=== PATIENT | male | born 1950 | race Caucasian/White ===

== ENCOUNTER 2016-09-12 00:30 | Day surgery (SDC) | payer OTHER ==
[2016-09-12] VITALS (11 sets, daily range): BP systolic 100–123; BP diastolic 59–79; PULSE 54–64; RESP 13–18; O2SAT 92–100
[~2016-09-12] VITALS: Ht 185.4 cm; Wt 77.6 kg
[~2016-09-12 00:30] MED LIST: ALPR0.5T PO; ASPI-973 PO; CARV25TA2 PO; CLOP75TA28 PO; LEVO175T5 PO; LISI-571 PO; SIMV40TA5 PO; SPIR25TA3 PO
[2016-09-12] MEDS ORDERED: 0.9% Sodium Chloride 1,000 ML IV PRN (07:39)
[2016-09-12] MEDS ORDERED: Vancomycin Inj 1,000 MG in IV Premix 1 EACH IV ONE (07:40)
[2016-09-12] MEDS ORDERED: ASPI325T32 PO (11:33)
[2016-09-12] MEDS ORDERED: AMIO400T4 PO (11:33)
[2016-09-12 11:47] LABS: BASOPHILS % (AUTO) 0.3 % (0-3); EOSINOPHILS % (AUTO) 2.5 % (0-5); MONOCYTES % (AUTO) 9.6 % (4-12); Mean Corpuscular Hemoglobin 29.4 pg (27.0-35.0); Mean Corpuscular Volume 88.3 fL (81-100); NEUTROPHILS % (AUTO) 72.5 % (40-74); Platelet Count 240 bil/L (150-400)
[2016-09-12] MEDS ORDERED: Heparin 1,000 Unit/mL 10 mL Inj ONE ×2 (13:58→14:01)
[2016-09-12] MEDS ORDERED: 0.9% Sodium Chloride 1,000 ML ONE (13:58)
[2016-09-12] MEDS ORDERED: Bupivacaine-MPF 0.5% 30 mL Inj ONE (13:58)
[2016-09-12] MEDS ORDERED: 0.9% Sodium Chloride 250 ML ONE ×2 (13:59→14:01)
[2016-09-12] MEDS ORDERED: fentaNYL-PF 50 mCg/mL 2 mL Inj ONE ×2 (14:25→14:47)
[2016-09-12] MEDS ORDERED: Vancomycin 1,000 mg Inj ONE (14:26)
[2016-09-12] MEDS: 0.9% Sodium Chloride 1,000 ML IV SCH ×2 (16:03→22:02)
[2016-09-12] MEDS ORDERED: Ondansetron 2 mg/mL 2 mL Inj IVPUSH PRN (16:05)
[2016-09-12] MEDS ORDERED: HYDROcodone-APAP 5-325 mg Tablet PO PRN (16:05)
--- NOTE | 2016-09-12 16:59 | DRSVH ---
PROCEDURE: X-RAY CHEST ONE VIEW, PORTABLE ([id number]) INDICATIONS: For new leads placed TECHNIQUE: One view of the chest was acquired. COMPARISON: [facility], CR, XR CHEST 2VW, 08/29/2016, 14:05. [facility], CR , XR CHEST 2VW, 04/25/2016, 6:40. FINDINGS: Surgical changes and devices: Pacemaking device and leads appear normal. Lungs and pleura: No pleural effusions or pneumothorax. Lungs are clear. Mediastinum: Mediastinal contours appear normal. Heart size is normal. Bones and chest wall: No suspicious bony lesions. Overlying soft tissues appear unremarkable. IMPRESSION: Normal positioning of leads, no pneumothorax after the procedure. Dictated by: Tima Langston M.D. on 09/12/2016 at 16:57 Approved by: Tima Langston M.D. on 09/12/2016 at 16:57
--- NOTE | 2016-09-12 18:54 | NUR ---
[facility]AS[facility] to [facility] transfer Pt. post pacemaker upgrade by Dr. Bolivar. He was without pain on L. chest pacemaker/ICD site. Island dressing CDI. Tele showed SB, no pacer spikes noted. Pt. was transferred to [facility] at 1830 in stable condition. Report called to [facility] nurse, Carlos Rodriguez RN.
[2016-09-12] MEDS ORDERED: ALPRAZolam 0.5 mg Tablet PO PRN (21:40)
[2016-09-13 00:41] VITALS: BP 101/64; PULSE 65; RESP 18; O2SAT 97
[2016-09-13] MEDS ORDERED: Vancomycin Inj 1,000 MG in IV Premix 1 EACH IV ONE (04:05)
--- NOTE | 2016-09-13 05:31 | NUR ---
Pain/Anxiety: Pt c/o mild pain at surgical site, refused medication. Denied SOB. Requested anxiety medication; effective. L arm in sling all night. Pt slept most of the night, pleasant and cooperative with care.
[2016-09-13 05:42] VITALS: BP 109/70; PULSE 72; RESP 18; O2SAT 97
--- NOTE | 2016-09-13 09:09 | DRSVH ---
PROCEDURE: X-RAY CHEST, TWO VIEWS ([id number]) INDICATIONS: For new lead placement TECHNIQUE: 2 views of the chest were acquired. COMPARISON: [facility], CR, XR CHEST 1VW (PORTABLE), 09/12/2016, 16:18. [facility], CR, XR CHEST 2VW, 08/29/2016, 14:05. FINDINGS: Surgical changes and devices: Stable positioning of left chest AICD Lungs and pleura: Small effusions and no pneumothorax pneumothorax. Lungs are clear. Mediastinum: Mediastinal contours are normal. Heart size is normal. Bones and chest wall: No suspicious bony abnormalities. Soft tissues appear unremarkable. IMPRESSION: Stable chest post pacer placement and probable trace bilateral posterior pleural effusion s. Dictated by: Yuval Faith RRA Interpreted: Kenneth Ocampo MD on 09/13/2016 at 9:07 Transcribed by: KUMAR on 09/13/2016 at 9:09 Approved by: Kenneth Ocampo M.D. on 09/13/2016 at 13:44
[2016-09-13 09:12] VITALS: BP 99/63; PULSE 78; RESP 16; O2SAT 96
--- NOTE | 2016-09-13 09:33 | PCM.DIMED ---
Discharge Instructions Date of Service Sep 13, 2016 Dates of Hospitalization Discharge Diagnosis Discharge Diagnosis Nonischemic Cardiomyopathy Ventricular Tachycardia ICD Diet Heart Healthy Activity Other (Keep incision dry one day. Do not extend left elbow high above shoulder for one month. Do not lift, push or pull more than 10 lbs with the left arm for one month.) Call your provider Fever or Chills, Bleeding, Excessive diarrhea Patient Instructions Follow-up in: 1 week Mid-level Provider (F9): Mihir Owens PA-C Follow-up with Mid-level in: 6 weeks Mihir Owens PA-C Sep 13, 2016 09:33
[2016-09-13] MEDS ORDERED: DOXY100C2 PO (09:50)
--- NOTE | 2016-09-13 10:42 | OP ---
[address] [address] OPERATIVE REPORT PATIENT: ROBERT FULTON : 1950 MR#: [id number] ADMIT: 09/12/2016 JOB ID: [id number] DATE OF SURGERY: 09/12/2016 PREOPERATIVE DIAGNOSIS(ES): 1. Severe dilated cardiomyopathy. 2. Single-chamber implantable cardioverter-defibrillator in place. 3. Recurrent implantable cardioverter-defibrillator discharges. POSTOPERATIVE DIAGNOSIS(ES): 1. Severe dilated cardiomyopathy. 2. Single-chamber implantable cardioverter-defibrillator in place. 3. Recurrent implantable cardioverter-defibrillator discharges. PROCEDURES PERFORMED: 1. Upgrade to a dual-chamber implantable cardioverter-defibrillator system with placement of a right atrial pacing lead and new dual-chamber implantable cardioverter-defibrillator generator. 2. Left upper extremity venogram. 3. Fluoroscopy. SURGEON: Parker Bolivar MD. [employer] PROGRAMMER: Jose Ennis. IMPLANTED DEVICES: 1. [employer] pulse generator, model CD 2411-36, serial #[id number]. 2. Right atrial lead [employer] 208 CC 52 cm, serial #[id number]. 3. Explanted device [employer] pulse generator, model CT2902-17m, serial #[id number]. 4. Chronic device RV ICD lead, single coil DF4, [employer] 7122q, 65 cm, serial #[id number]. ANESTHESIA: Bolus dosing of Versed and fentanyl were administered for an appropriate level of sedation. INDICATION: The patient is a pleasant 66-year-old man with severe dilated cardiomyopathy, single-chamber ICD who had multiple ICD discharges with difficult to discern etiology. After discussion of the risks and benefits of upgrading to a dual-chamber ICD system for better discrimination of SVT versus VT, he opted to proceed. PROCEDURAL DESCRIPTION: Following informed signed consent, the patient was taken to the EP laboratory in a fasting, nonsedated state, where he was prepped and draped in usual sterile fashion. The left infraclavicular surgical scar was infiltrated with 30 cc of a 50/50 mixture of bupivacaine and lidocaine. Once adequate anesthesia had been achieved, a 3 cm incision was performed overlying previous surgical scar. Dissection was carried to the capsule and the lead and generator were freed loose of adhesions. The lead was disconnected from the generator. Under venographic and fluoroscopic guidance, the left subclavian vein was accessed with a micropuncture needle to deploy a 0.035, 3 mm J guidewire. Over this, a 6-Belgian tear-away sheath was advanced. Once the guidewire was removed an active fixation lead was advanced to the right atrial appendage. Mapping was undertaken for adequate sensing and threshold. Ultimately, a position of adequate sensing and threshold was found low in the right atrium. The lead was affixed in position using associated active fixation screw and was connected to the external analyzer and demonstrated appropriately sensed P waves, impedance, and capture threshold was checked to 10 V and there was no evidence of diaphragmatic stimulation. Once the position and redundancy of the leads had been confirmed in multiple fluoroscopic views, the lead was anchored to the prepectoralis fascia using associated anchoring sleeve with 0 Ethibond sutures and the pocket was copiously irrigated out with bacitracin solution. The new lead and chronic lead were connected to a new pulse generator which was then inserted into the pocket. The generator was secured to the floor of the capsule using 1-0 Ti-Cron suture. The incision was then closed with running layers of absorbable suture. The wound was dressed with skin adhesive and a small dressing at the end of procedure. The sponge, needle and instrument counts were all correct. COMPLICATIONS: None. BLOOD LOSS: Negligible. DEVICE MEASURED DATA: 1. Right atrial lead 2.3 mV, 510 ohms, 1 V at 0.5 msec. 2. RV lead 9 mV, 510 ohms, 0.75 V at 0.5 msec. FINAL PROGRAM PARAMETERS: DDD 50-130 beats per minute. Tachytherapy zones are left identical to previous. IMPRESSION: Successful upgrade to a dual-chamber implantable cardioverter-defibrillator system. PLAN: 1. Stat portable chest x-ray. 2. PA and lateral chest x-ray in the morning. 3. Device interrogation. 4. IV vancomycin through tomorrow. 5. Doxycycline 100 mg p.o. daily x7 days. 6. Wound check in one week. ATTENDING STATEMENT: Parker Bolivar MD, electrophysiology attending, supervised/performed all aspects of this procedure.
[2016-09-13 11:05] VITALS: PULSE 73
--- NOTE | 2016-09-13 14:29 | DIS ---
[address] [address] DISCHARGE SUMMARY PATIENT: ROBERT FULTON : 1950 MR#: [id number] ADMIT: 09/12/2016 JOB ID: [id number] DIS: 09/13/2016 REASON FOR ADMISSION: Upgrade of single-lead defibrillator to a dual-chamber defibrillator. CHIEF COMPLAINT: Recurrent ICD shocks. HISTORY OF PRESENT ILLNESS: The patient is a pleasant 66-year-old man with a severe dilated nonischemic cardiomyopathy and an LV ejection fraction of 10%-15%. He received a single-chamber ICD in March 2016 and subsequently had several episodes of VT that were responsive to pacing therapy. The ventricular tachycardia was quite rapid and it was recommended to him that he start on amiodarone, but he declined over concern of the potential toxicities. While on a business trip a number weeks ago he received ICD shocks while in his hotel room, and later while flying home he was shocked by the device during flight. He was taken to the [facility] in [facility] and an EP study did not show inducibility of ventricular arrhythmia and there was concern that he might have had supraventricular tachycardia, specifically atrial flutter. He apparently had an ablation procedure for flutter and also some VT ablation. He was started on amiodarone IV as an inpatient and then when seen by Dr. Cottrell here he was begun on oral loading dose of amiodarone and is currently taking 200 mg b.i.d. His single lead ventricular defibrillator does not record or demonstrate any data from the atrium, so he was admitted now for upgrade of the device to a dual-chamber device so that discrimination of supraventricular versus ventricular tachycardias is possible. COURSE IN THE HOSPITAL: The patient was admitted to the [facility] and taken to the labeling specialist, where he received a dual-chamber ICD without incident. He was taken back to the [facility] for recovery from sedation and then transferred up to the [facility] for overnight observation and telemetry monitoring. He remained stable overnight and had no ventricular arrhythmias. The device site is closed and dry and there is no hematoma. Device evaluation shows excellent capture and sensing thresholds for both leads and he receives pacing less than 1% of the time. Chest x-ray showed good lead positions and no pneumothorax. He felt well for discharge home and was ambulatory without difficulty. He was not having much pain at the ICD site and denied chest pain, lightheadedness, or dyspnea. DISPOSITION: The patient was discharged home in good condition with a followup appointment at the [facility] Cardiology office in one week. He was asked not to extend his left elbow above his left shoulder for one month and not to lift, push, or pull more than 10 pounds with the left arm for one month. He will take medications as prescribed and follow his heart-healthy and heart-failure diet. MEDICATIONS: 1. Doxycycline 100 mg daily for one week. 2. Alprazolam 0.5 mg t.i.d. p.r.n. anxiety. 3. Amiodarone 400 mg daily. 4. Aspirin 325 mg daily. 5. Carvedilol 25 mg b.i.d. 6. Clopidogrel 75 mg daily. 7. Levothyroxine 175 mcg daily. 8. Lisinopril 5 mg daily. 9. Simvastatin 20 mg q.h.s. 10. Spironolactone 12.5 mg daily. FINAL DIAGNOSES: Severe nonischemic dilated cardiomyopathy and also ventricular tachycardia and recurrent ICD shocks.
== END 2016-09-13 11:29 | disposition home or self-care (01) ==
LOC: SOUO 00:30 → MPC 18:31 → SOUO 09-13 11:29
PROVIDERS: ATTEND Internal Medicine Cardiovascular Disease
DX: I42.0 Dilated cardiomyopathy (principal); Z00.6 Encounter for examination for normal comparison and control in clinical research program; T82.191A Other mechanical complication of cardiac pulse generator (battery), initial encounter; Z79.899 Other long term (current) drug therapy; I47.2 Ventricular tachycardia; Z79.82 Long term (current) use of aspirin; E78.5 Hyperlipidemia, unspecified; E03.9 Hypothyroidism, unspecified
CPT/HCPCS: 33241; 33249; 36415; 71010; 71020; 80048; 85025; 85610; 93005; 99152; 99153; C1721; C1769; C1892; C1898; J1200; J1644; J2250; J3010; J3370; J7030; J7050

== ENCOUNTER 2016-11-14 12:10 | Day surgery (SDC) | payer OTHER ==
[~2016-11-14] VITALS: Ht 185.4 cm; Wt 81.7 kg
[~2016-11-14 12:10] MED LIST changes: +AMIO400T4 PO; -ASPI-973 PO; +ASPI325T32 PO; +DOXY100C2 PO; +Lactated Ringer's 1,000 ML IV ONE
[2016-11-14] MEDS ORDERED: Ketamine 10 mg/mL 20 mL Inj ONE (12:11)
[2016-11-14] MEDS ORDERED: Glycopyrrolate 0.2 MG/ML 1mL Inj ONE (12:11)
[2016-11-14] MEDS ORDERED: Propofol 10,000 mCg/mL 20 mL Inj ONE (12:11)
[2016-11-14 12:53] VITALS: BP 128/78; PULSE 69; RESP 12; O2SAT 98
--- NOTE | 2016-11-14 13:18 | PCM.HPANE ---
Patient Data Date of Service: November 14, 2016 Surgeon Admitting Provider: Attending Provider:Carols Kent MD Primary Care Physician:Yunior Dietz MD Other Provider:Lisa Shankar Anesthesia Reason for Visit Pos Fit Test Ht/WT & BMI Height (Feet): 6 Height (Inches): 1 Weight (Kilograms): 81.65 Body Mass Index 23.00 Allergies Coded Allergies: No Known Drug Allergies (Verified Allergy, Unknown, 11/13/16) Past Anesthesia History Anesthesia History: Denies:: Abnormal Airway, Anesthesia Reactions, Difficult Intubation, Fam Anesthesia Reaction, Fam Malignant Hypertherm, Malignant Hyperthermia Diabetes History Hx Diabetes?: No MRSA MRSA: No Medications Blood Thinner: Aspirin, Plavix Last Dose Blood Thinner: November 07, 2016 Home Meds Incl Beta Olga: Yes Date Beta Olga Taken: November 13, 2016 Time Beta Olga Taken: 0630 Reported Medications Amiodarone 400 Mg Vclpid470 Mg PO DAILY 09/12/16 Aspirin 325 Mg [id number] Mg PO DAILY 09/12/16 Alprazolam (Xanax)0.5 Mg Tablet0.5 Mg PO TID PRN For Anxiety 09/11/16 Levothyroxine 175 Mcg Oetglz777 Mcg PO DAILY 04/25/16 Simvastatin 40 Mg Luziyr71 Mg PO HS 04/12/16 Clopidogrel 75 Mg Ftlsvw57 Mg PO DAILY 04/12/16 Spironolactone 25 Mg Bgtrrn76.5 Mg PO DAILY 04/12/16 Lisinopril 5 Mg Tablet5 Mg PO DAILY 04/12/16 Carvedilol 25 Mg Edhzmg99 Mg PO BID 04/12/16 Discontinued Scripts Doxycycline Hyclate 100 Mg [id number] Mg PO DAILY #7 CAPSULE Ref 0 Prov:Mihir Owens PA-C 09/13/16 History History of ENT Problems?: No HEENT History: Denies:: Abnormal Airway Cataracts Difficult Intubation Dysphagia Hearing Problem Sinus Problem Denture Type: Full- Upper Full- Lower Teeth Condition: No Teeth Hx of Heart Problems?: Yes Cardiovascular History: Positive for:: Atrial Fibrillation (HX ONLY) Cardiac Surgery (Stents, cardiac cath, ICD) Congestive Heart Failure Hypertension Irregular Heartbeat (Arrhythmia) Denies:: AICD (03/2016) Chest Pain Edema Heart Murmur Pacemaker Valvular Heart Disease Other Cardiac History: HX OF LOW EF 16%; NO RECENT SYNCOPAL EPISODES; LONG TIME AGO PRESYNCOPE Hx of Respiratory Problem?: No Respiratory History: Denies:: Asthma Chest Surgery Dyspnea Pneumonia Tuberculosis Hx Neurologic Problems?: Yes Neurological History: Positive for:: Dizziness ("Occasionally, when I heart goes weird.") Denies:: CVA Dementia Headaches Parkinson's Disease Seizures TIA Hx of GI Problems?: Yes Hx of Problems?: No Hx Musculoskeletal Problems?: No Musculoskeletal History: Denies:: Back Injury Fibromyalgia Joint Replacement Hx of Psycho/Social Problems?: Yes Psycho Social History: Positive for:: Anxiety (SITUATIONAL) Denies:: Hx Depression Suicide Attempt Hx Surgeries?: Yes (L ELBOW FRACTURE, AICD PLACED) Hx Any Other Health Problems?: No Other History: Positive for:: Hospitalization Thyroid Disease Denies:: Cancer History Blood Transfusions: Denies:: Blood Transfuse Reaction Blood Transfusions Hx Diabetes: No Hx Alcohol Use: NoHx Substance Use: No Smoking Status: Former Smoker (QUIT 10YRS AGO) Have You Smoked inLast 12 mo: No Stop/Bang Treated for Sleep Apnea?: No Do You Have a CPAP Machine?: No S-Snoring: Do You Snore Loudly: No T-Tired: feel tired, fatigued: No O-Obsered: Observed not breath: No P-Blood Pressure: treated: Yes B- Body Mass Index > 35 kg/m2: No A- Age over 50: Yes N- Neck Large Circumference: No G- Gender Male: Yes SAMI Total Score: 3 SAMI Risk Assessment: Low Risk, <3 Yes SAMI Category 2: Yes Risk Assessment Category Category 1A: Patient has history of documented sleep apnea, and HAS NOT received any narcotic, sedative or anesthesia administration during this stay. Category 1B: Patient has history of documented sleep apnea, and HAS received any narcotic , sedative or anesthesia administration during this stay Category 2: Patient has SUSPECTED Obstructive Sleep Apnea, and HAS received any narcotic , sedative or anesthesia administration during this stay. Category 3: Patient has SUSPECTED Obstructive Sleep Apnea and HAS NOT received narcotic, sedative or anesthesia administration during this stay. Category 4: Outpatient in Procedural Areas with known sleep apnea or who screen positive for High Risk via the STOP/BANG questionnaire. Exam Exam Vital Signs Vital Signs Date Time Temp Pulse Resp B/P Pulse Ox O2 Delivery O2 Flow Rate FiO2 11/14/16 12:53 69 12 128/78 98 Room Air General Appearance: Alert, Oriented X3, Cooperative, No Acute Distress HEENT/AIRWAY: MP 3, Neck Movement (FROM), Mouth Opening (>3), Other (TMD>3) Lungs: Normal Air Movement Heart: Exam Unremarkable, Regular Rate/Rhythm, Normal S1, Normal S2, No Murmurs /Rubs/Gallops Plan Impression Patient chart reviewed, patient interviewed and anesthestic plan with risks, benefits, and alternatives discussed, and informed consent obtained. NPO per Anesth. Guidelines: Yes ASA Physical Status: ASA4 Life Threatening Anesthetic Plan: TIVA Bene/Risks/Altern/Consents: Yes HP Complete Prior to Induction: Yes Prince Harden MD November 14, 2016 13:18
[2016-11-14] MEDS ORDERED: Phenylephrine 10,000 mCg/mL Inj IVPUSH PRN (13:35)
[2016-11-14] MEDS ORDERED: Lactated Ringer's 1,000 ML IV SCH (13:35)
[2016-11-14] MEDS ORDERED: Ondansetron 2 mg/mL 2 mL Inj IVPUSH PRN (13:35)
[2016-11-14] MEDS ORDERED: MetoCLOpramide 5 mg/mL 2 mL Inj IVPUSH PRN (13:35)
[2016-11-14] MEDS ORDERED: EPHEDrine Sulfate 50 mg/mL Inj IVPUSH PRN (13:35)
[2016-11-14] MEDS ORDERED: Dexamethasone 4 mg/mL Inj IVPUSH PRN (13:35)
[2016-11-14] MEDS ORDERED: HYDROmorphone 1 mg/mL Inj IVPUSH PRN (13:35)
[2016-11-14] MEDS ORDERED: fentaNYL-PF 50 mCg/mL 2 mL Inj IVPUSH PRN (13:35)
[2016-11-14] MEDS ORDERED: Lactated Ringer's 500 ML IV PRN (13:35)
[2016-11-14 13:52] VITALS: BP 85/61; PULSE 79; RESP 12; O2SAT 99
[2016-11-14 14:04] VITALS: BP 84/61; PULSE 86; RESP 12; O2SAT 98
[2016-11-14 14:05] VITALS: BP 104/70; PULSE 84; RESP 12; O2SAT 100
--- NOTE | 2016-11-14 14:16 | ENDO ---
[address] [address] ENDOSCOPY PROCEDURE PATIENT: ROBERT FULTON : 1950 MR#: [id number] ADMIT: 11/14/2016 JOB ID: [id number] DATE OF SERVICE: 11/14/2016 TYPE OF OPERATION: Colonoscopy with hot snare polypectomy with Endoloop placement. PREOPERATIVE DIAGNOSIS(ES): Positive fecal immunochemical test. POSTOPERATIVE DIAGNOSIS(ES): 1. Mild sigmoid diverticulosis. 2. Large, pedunculated, 4 cm sigmoid polyp, status post Endoloop, status post hot snare polypectomy. ANESTHESIA: Monitored anesthesia care. COMPLICATIONS: None. BLOOD LOSS: Minimal. DESCRIPTION OF PROCEDURE: After risks and benefits explained to the patient, informed was obtained. After anesthesia administered, colonoscope was then inserted per rectum to cecum. Mucosa carefully examined. Prep of the patient was excellent. After procedure was done, the scope withdrawn and the procedure terminated. FINDINGS: Upon inspection of the anus, no masses, hemorrhoids, ulcers, or fissures that were seen. Throughout the entire examination, there is a 4 cm, pedunculated polyp seen in the sigmoid colon. An Endoloop was first placed distal at the base and afterwards, a hot snare polypectomy was performed. There was mild sigmoid diverticulosis. Retroflexion was normal. IMPRESSION: 1. Mild sigmoid diverticulosis. 2. A 4 cm, pedunculated sigmoid polyp, status post Endoloop placement, status post hot snare polypectomy. RECOMMENDATIONS: Await pathology results. If tubular adenoma, then repeat colonoscopy in three years.
--- NOTE | 2016-11-14 16:03 | PCM.ANEP1 ---
Post Anesthesia PACU Phase 1 Assessment Date of Service: November 14, 2016 Vital Signs Vital Signs Date Time Temp Pulse Resp B/P Pulse Ox O2 Delivery O2 Flow Rate FiO2 11/14/16 14:05 84 12 104/70 100 Room Air 11/14/16 14:04 86 12 84/61 98 Room Air 11/14/16 13:52 79 12 85/61 99 Room Air 11/14/16 12:53 69 12 128/78 98 Room Air Anesthetic Administered: TIVA Level of Alertness: Awake, talking CAMPA's with Equal Strength: Yes Pain: No Pain Scale Score: 0 Nausea or Vomiting: No CV Function & Hydration Stable: Yes Airway Device: none Lungs: Normal Air Movement PACU Phase 2 Assessment Complications: No Follow up Care: N/A Patient Instructions Provided: Yes Comments 11/14/16 14:05 84 12 104/70 100 Room Air Prince Harden MD November 14, 2016 16:03
--- NOTE | 2016-11-16 10:09 | PATH ---
SURGICAL PATHOLOGY Attending Physician:Carlos Kent MD CASE STATUS: Signed Out PATIENT NAME: ROBERT FULTON PID: [id number] : 1950 DATE COLLECTED:11/14/2016 00:00 SPECIMEN: Colon, Biopsy CLINICAL HISTORY: POS FIT TEST 1. SIGMOID POLYP X1 FINAL DIAGNOSIS: 1.SIGMOID COLON POLYP: POLYPOID TUBULAR ADENOMA, TOTALLY EXCISED. ICD10 D12.5 GROSS DESCRIPTION: The specimen is received in one formalin filled container labeled with the patient's name, sublabeled "sigmoid polyp" and consists of a 0.7 x 1.0 x 2.0 CM smith-brown portion of tissue. The specimen is bisected and entirely submitted in one cassette. The specimen fragmented upon sectioning. 11/15/2016 [facility] MICRO DESCRIPTION: See diagnosis. ICD-9 CODES: CPT CODES: 1: 45662 Electronically Signed Out Silas Aguilera MD [facility] Pathology [facility] [address], [place] [address] Technical component performed at [facility], [address] [place] [address] Ave[address], [place], [address]
== END 2016-11-14 23:59 | disposition home or self-care (01) ==
LOC: END 12:10
PROVIDERS: ATTEND Internal Medicine Gastroenterology
DX: D12.5 Benign neoplasm of sigmoid colon (principal); K57.30 Diverticulosis of large intestine without perforation or abscess without bleeding; R19.5 Other fecal abnormalities; I25.10 Atherosclerotic heart disease of native coronary artery without angina pectoris; I10 Essential (primary) hypertension; E78.5 Hyperlipidemia, unspecified; I47.2 Ventricular tachycardia; I70.203 Unspecified atherosclerosis of native arteries of extremities, bilateral legs; I65.29 Occlusion and stenosis of unspecified carotid artery; F41.9 Anxiety disorder, unspecified; E03.9 Hypothyroidism, unspecified; Z95.5 Presence of coronary angioplasty implant and graft; Z79.02 Long term (current) use of antithrombotics/antiplatelets; Z79.82 Long term (current) use of aspirin; Z87.891 Personal history of nicotine dependence; Z95.810 Presence of automatic (implantable) cardiac defibrillator
CPT/HCPCS: 45385; J2250; J7120